=== PATIENT | female | born 1960 | race Two or more races ===

== ENCOUNTER 2024-12-31 12:07 | Emergency (ER) | payer OTHER ==
[~2024-12-31] VITALS: Ht 160 cm; Wt 77.1 kg
[2024-12-31] MEDS ORDERED: ATORVASTATIN CA10 MG PO (12:31)
[2024-12-31] MEDS ORDERED: METFORMIN HCL850 M1 PO (12:31)
[2024-12-31] MEDS ORDERED: KETOROLAC TROMETHAMINE 60 MG VIAL IM ONE (13:15)
== END 2024-12-31 14:54 | disposition home or self-care (01) ==
LOC: ER 12:47
DX: S92.511A Displaced fracture of proximal phalanx of right lesser toe(s), initial encounter for closed fracture (principal); X58.XXXA Exposure to other specified factors, initial encounter; Y93.89 Activity, other specified; Y92.018 Other place in single-family (private) house as the place of occurrence of the external cause; Y99.9 Unspecified external cause status; E11.9 Type 2 diabetes mellitus without complications; Z79.84 Long term (current) use of oral hypoglycemic drugs